=== PATIENT | male | born 1995 | race American Indian/Alaskan Native ===

== ENCOUNTER 2019-06-23 10:43 | Emergency (ER) | payer SELFPAY ==
--- NOTE | 2019-06-23 11:57 | Emergency Department Report ---
Chief Complaint: Neck Pain/Injury Stated Complaint: MAJOR NECK PAIN/DIFF AREAS PAIN Time Seen by Provider: 06/23/19 11:15 - HPI History of Present Illness: 23-year-old -[place] male patient presents with complaints of intermittent right-sided neck pain x5 months. He denies any injuries, numbness/tingling/weakness in his limbs, fever/chills/sweats, abnormal weight loss, weakness, or stiffness. He rates his current pain as a 5/10 in severity and states it worsens with movement of the neck. 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 He states ibuprofen does not help with his pain. Patient states he is concerned for his thyroid due to his mother having thyroid disease. He also states that his neck has been swollen a few months ago, but he has not had any swelling since. - ROS Review of Systems: Constitutional: denies: chills, fever, dizziness Eyes: denies: vision change HENT: denies: difficulty swallowing, throat pain Respiratory: denies: cough, SOB Cardiovascular: denies: palpitations, edema, syncope, chest pain Endocrine: denies: excessive sweating, flushing Gastrointestinal: denies: abdominal pain, nausea, vomiting Genitourinary: denies: frequency, hematuria Musculoskeletal: denies: back pain Skin: denies: rash, lesions Neurological: denies: headache, weakness, numbness, paresthesias, confusion, abnormal gait, vertigo Hematological/Lymphatic: denies: easy bleeding, easy bruising - Exam Physical Exam: - General Limitations: No Limitations General appearance: alert, in no apparent distress - Head Head exam: Present: atraumatic, normocephalic - Eye Eye exam: Present: normal appearance, PERRL. Absent: scleral icterus - ENT ENT exam: Present: normal exam, normal orophraynx - Neck Neck exam: Present: normal inspection, full ROM. Absent: tenderness, lymphadenopathy, thyromegaly, vertebral tenderness, paravertebral tenderness - Respiratory Respiratory exam: Present: normal lung sounds bilaterally, Absent: respiratory distress - Cardiovascular Cardiovascular Exam: Present: regular rate, normal rhythm. Absent: systolic murmur, diastolic murmur, rubs, gallop - GI/Abdominal GI/Abdominal exam: Present: soft, normal bowel sounds. Absent: distended, tenderness, guarding, rebound, rigid - Extremities Exam Extremities exam: Present: normal inspection, full ROM - Back Exam Back exam: Present: normal inspection - Neurological Exam Neurological exam: Present: alert, oriented X3, CN II-XII intact, normal gait. Absent: motor sensory deficit - Expanded Neurological Exam Expanded Motor strength exam: RUE: 5, LUE: 5, RLE: 5, LLE: 5 - Psychiatric Psychiatric exam: Present: normal affect, normal mood - Skin Skin exam: Present: warm, dry, intact, normal color. Absent: rash MSE screening note: Focused history and physical exam performed. Due to findings the following was ordered: ED Medical Decision Making - Medical Decision Making 23-year-old -[place] male patient presents with complaints of intermittent right-sided neck pain x5 months. He denies any red flag symptoms. His neuro exam is normal. No tenderness to palpation of the neck noted on exam. Patient has full range of motion of his neck on exam. Patient's vitals are normal and he is nontoxic-appearing. Patient is stable for discharge home and outpatient evaluation of his neck pain. Patient provided with information for Dr. Watson. Discussed very strict return precautions in great detail with patient who verbalizes understanding. ED Disposition for MSE Clinical Impression: Neck pain, chronic Disposition: Z-07 MED SCREENING EXAM-LEFT Is pt being admited?: No Condition: Stable Instructions: Cervical Radiculopathy (ED) Referrals: URIEL WATSON MD [Staff Physician] - 2-3 Days
[2019-06-23 14:54] VITALS: BP 115/74
== END 2019-06-23 12:07 | disposition left against medical advice (07) ==
LOC: ED 10:43
DX: G89.29 Other chronic pain (principal); M54.2 Cervicalgia
CPT/HCPCS: 99281

== ENCOUNTER 2020-06-19 18:40 | Emergency (ER) | payer SELFPAY ==
--- NOTE | 2020-06-19 19:07 | Event Note ---
ED Screening Note Date of service: 06/19/20 Time: 19:05 ED Screening Note: 24 yo male who presents to the ED with a chief complaint of mid and low back pain with any movement. 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 No specific injuries. no saddle anaesthesias, no bowel or bladder incontinence. This initial assessment/diagnostic orders/clinical plan/treatment(s) is/are subject to change based on patients health status, clinical progression and re- assessment by fellow clinical providers in the ED. Further treatment and workup at subsequent clinical providers discretion. Patient/guardian urged not to elope from the ED as their condition may be serious if not clinically assessed and managed. Initial orders include: xr chest, xr thoracic spine, xr lumbar spine
--- NOTE | 2020-06-19 19:47 | XRay Report ---
CHEST 2 VIEWS INDICATION / CLINICAL INFORMATION: MAIN. FINDINGS: COMPARISON: None available. FINDINGS: SUPPORT DEVICES: None. HEART / MEDIASTINUM: No significant abnormality. LUNGS / PLEURA: No significant pulmonary or pleural abnormality. No pneumothorax. ADDITIONAL FINDINGS: No significant additional findings. IMPRESSION: 1. No acute findings. Lumbar spine 3 views INDICATION: Back pain FINDINGS: Alignment appears normal. No acute fracture or dislocation is seen. Facets appear well alig miryam throughout. IMPRESSION: No acute findings. Signer Name: Diogo Trent MD Signed: 06/19/2020 7:43 PM Workstation Name: [id number]
--- NOTE | 2020-06-19 19:48 | XRay Report ---
Thoracic spine 2 views INDICATION: Lifting injury FINDINGS: Mild curvature the spine. Pedicles appear normal throughout. No loss of vertebral body heig ht. No compression fracture. Signer Name: Diogo Trent MD Signed: 06/19/2020 7:44 PM Workstation Name: [id number]
[2020-06-19 20:18] VITALS: BP 116/77
[2020-06-19] MEDS ORDERED: CYCLOBENZAPRINE 10 MG TAB PO ONE ×2 (20:25→21:34)
[2020-06-19] MEDS ORDERED: KETOROLAC 60 MG/2 ML INJ IM ONE (20:25)
[2020-06-19] MEDS ORDERED: ONDANSETRON 4 MG/2 ML INJ IV ONE (20:41)
[2020-06-19] MEDS ORDERED: MORPHINE 4 MG/1 ML INJ IV ONE (20:41)
[2020-06-19] MEDS ORDERED: SODIUM CHLORIDE 0.9% 1000 ML 1,000 ML IV ONE (20:41)
--- NOTE | 2020-06-19 20:42 | Emergency Department Report ---
ED Back Pain/Injury HPI - General Chief Complaint: Back Pain/Injury Stated Complaint: BACK PAIN INJURY/PAIN Time Seen by Provider: 06/19/20 20:25 Source: patient Limitations: No Limitations - History of Present Illness Initial Comments: 24 yr old male with no sig pmhx presents to ED c/o thoracic back pain. Onset 3 days ago. 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 He states pain has been constant and worse with deep breathes, certain positions and movement. He describes it as sharp pain and he states pain radiates into central chest. He denies any cough, fever or chills. He denies any nausea, Vomiting or any bowel changes. He denies any bowel or bladder incontinence. He denies Saddle anesthesia. He denies any Lower extremity weakness, numbness or tingling. He denies any calf pain or lower extremity swelling. He denies similar symptoms in the past. He states that he does drink occasionally and smokes marijuana. He denies any other illicit drug use. MD Complaint: back pain -: Gradual, days(s) (3) Similar Symptoms Previously: No - Related Data Previous Rx's Medication Instructions Recorded Last Taken Type Oxycodone HCl/Acetaminophen 1 each PO Q6HR PRN #12 tablet 06/19/20 Unknown Rx [Percocet 7.5/325 mg] Allergies Allergy/AdvReac Type Severity Reaction Status Date / Time No Known Allergies Allergy Unverified 06/23/19 10:46 ED Review of Systems ROS: Stated complaint: BACK PAIN INJURY/PAIN Other details as noted in HPI Comment: All other systems reviewed and negative Constitutional: denies: chills, fever Eyes: denies: eye pain, eye discharge, vision change ENT: denies: ear pain, throat pain Respiratory: other (Pleuritic chest pain). denies: cough, shortness of breath, SOB with exertion, SOB at rest, stridor, wheezing Cardiovascular: chest pain. denies: palpitations, dyspnea on exertion, orthopnea, edema, syncope, paroxysmal nocturnal dyspnea Gastrointestinal: denies: abdominal pain, nausea, vomiting, diarrhea, constipation, hematemesis, melena, hematochezia Musculoskeletal: back pain Neurological: denies: headache, weakness, paresthesias Psychiatric: denies: anxiety, depression ED Past Medical Hx - Past Medical History Previous Medical History?: No - Surgical History Past Surgical History?: No - Social History Smoking Status: Never Smoker Substance Use Type: None, Marijuana - Medications Home Medications: Home Medications Medication Instructions Recorded Confirmed Last Taken Type Oxycodone HCl/Acetaminophen 1 each PO Q6HR PRN #12 tablet 06/19/20 Unknown Rx [Percocet 7.5/325 mg] ED Physical Exam - General Limitations: No Limitations General appearance: alert, anxious, in distress (sec to pain), other (Patient appears uncomfortable, writhing in pain and keeps c/o of pain in his back and in his chest) - Head Head exam: Present: atraumatic, normocephalic, normal inspection - Eye Eye exam: Present: normal appearance, PERRL, EOMI Pupils: Present: normal accommodation - ENT ENT exam: Present: normal exam, mucous membranes moist - Neck Neck exam: Present: normal inspection, full ROM - Respiratory Respiratory exam: Present: normal lung sounds bilaterally. Absent: respiratory distress, wheezes, rales, rhonchi, accessory muscle use, decreased breath sounds, prolonged expiratory - Cardiovascular Cardiovascular Exam: Present: regular rate, normal rhythm, normal heart sounds - GI/Abdominal GI/Abdominal exam: Present: soft, tenderness (Epigastric). Absent: distended, guarding, rebound - Extremities Exam Extremities exam: Present: normal inspection, full ROM, pedal edema, calf tenderness - Back Exam Back exam: Present: normal inspection, full ROM, other (pt does not appear to have ttp to paraspinal muscles nor the spine in the thoracic region.) - Neurological Exam Neurological exam: Present: alert, oriented X3, CN II-XII intact, normal gait - Psychiatric Psychiatric exam: Present: normal affect, normal mood - Skin Skin exam: Present: intact ED Course Vital Signs 06/19/20 06/19/20 19:24 20:15 Temperature 97.9 F 99.4 F Pulse Rate 78 81 Respiratory 16 18 Rate Blood Pressure 133/74 116/77 O2 Sat by Pulse 100 100 Oximetry ED Medical Decision Making - Lab Data Result diagrams: 06/19/20 20:45 06/19/20 20:45 - EKG Data EKG shows normal: sinus rhythm Rate: normal - EKG Data Interpretation: nonspecific ST-T wave kyle - Radiology Data Radiology results: report reviewed Patient: PRASANNA GIVENS#: [id number] : 1995 Acct:[id number] Age/Sex: 24 / M ADM Date: 06/19/20 Loc: ED Attending Dr: Ordering Physician: OMAYRA DORAN Date of Service: 06/19/20 Procedure(s): CT angio chest Accession Number(s): [id number] cc: OMAYRA DORAN CTA CHEST WITH CONTRAST INDICATION / CLINICAL INFORMATION: chest/back pain. TECHNIQUE: Axial CT images were obtained through the chest after injection of IV contrast. 3 plane MIP and/or 3D reconstructions were produced. All CT scans at this location are performed using CT dose reduction for ALARA by means of automated exposure control. COMPARISON: Chest radiograph from the same date. FINDINGS: PULMONARY ARTERIES: No pulmonary emboli. THORACIC AORTA: No significant abnormality. HEART: No significant abnormality. CORONARY ARTERIES: No significant calcification. MEDIASTINUM / KELVIN: No significant abnormality. PLEURA: No pleural effusion. No pneumothorax. LUNGS: No acute air space or interstitial disease. ADDITIONAL FINDINGS: None. UPPER ABDOMEN: No acute findings. SKELETAL STRUCTURES: No significant osseous abnormality. IMPRESSION: 1. No CT evidence for pulmonary embolism. 2. No acute findings. Signer Name: Lissett Mccray MD Signed: 06/19/2020 9:52 PM Workstation Name: [id number] Transcribed By: SS Dictated By: LISSETT MCCRAY Electronically Authenticated By: LISSETT MCCRAY Signed Date/Time: 06/19/202151 DD/ 50 TD/TT: - Medical Decision Making 12:03 patient currently resting comfortably sleeping. He is easily arousable. He reports some improvement of his pain after meds he is not toxic appearing. He is not ill-appearing. He is not in any respiratory distress. He is neurologically intact. His vital signs have remained stable throughout stay. Repeat abdominal exam showed nonsurgical abdomen. X-rays, CTA chest, and labs reviewed. Lipase is elevated at 407, no mention of apparent pancreatitis on the CTA; the images were reviewed by myself and Dr. Meraz and imaging did include down to kidneys, No obvious acute abnormality noted to pancreas. His white count is normal, his liver functions are normal, renal functions are normal, electrolytes are normal, his troponin is negative, EKG shows no STEMI, no acute ischemic changes or significant dysrhythmias, CTA shows no evidence of PE or dissection or any other acute abnormality., chest x-ray normal, and his x-rays of his lumbar and thoracic spine also normal. Patient is young and otherwise healthy. No indication for admission at this time. Patient will be discharged home with recommendation to do clear liquid diet for the next 1 to 2 days and he will be given medication for pain. Discussed imaging results and lab results with patient. Questions again about alcohol use, he states he only drinks occasionally. He denies history of pancreatitis in the past. Discussed pancreatitis with patient, and informed him that we recommend that he does a clear liquid diet for the next 1 to 2 days and he will be prescribed medication for pain. Patient also understands that if his pain worsens or changes in any way he needs to return to the ER. Patient expressed understanding of instructions and agree with plan. Patient was stable at time of discharge. Critical care attestation.: If time is entered above; I have spent that time in minutes in the direct care of this critically ill patient, excluding procedure time. ED Disposition Clinical Impression: Pancreatitis, Atypical chest pain, Back pain Disposition: DC-01 TO HOME OR SELFCARE Is pt being admited?: No Does the pt Need Aspirin: No Condition: Stable Instructions: Acute Pancreatitis, [id number], Nonspecific Chest Pain, Adult, [id number], Chest Pain (ED) Additional Instructions: I recommend I take the pain medication as prescribed. I recommend that you do a clear liquid diet for the next 24 to 48 hours as discussed. Gradually increase to solid foods. Follow-up closely with the primary care doctor listed on your discharge instructions but return to the ER immediately if your pain worsens or changes in any way. Prescriptions: Oxycodone HCl/Acetaminophen [Percocet 7.5/325 mg] 1 each PO Q6HR PRN #12 tablet PRN Reason: Pain Referrals: URIEL LASSITER MD [Staff Physician] - 3-5 Days Forms: Work/School Release Form(ED) Time of Disposition: 23:58
[2020-06-19 20:57] LABS: Hemoglobin 14.4 gm/dl (11.8-15.2); Red Blood Count 6.02 M/mm3 (3.65-5.03)
[2020-06-19 20:58] LABS: Basophils % (Auto) 0.3 % (0.0-1.8); Eosinophils # (Auto) 0.1 K/mm3 (0.0-0.4); Eosinophils % (Auto) 0.8 % (0.0-4.3); Hematocrit 44.3 % (35.5-45.6); Lymphocytes # (Auto) 1.3 K/mm3 (1.2-5.4); Lymphocytes % (Auto) 11.3 % (13.4-35.0); Mean Corpuscular HGB Conc 33 % (32-34); Mean Corpuscular Volume 74 fl (84-94); Monocytes % (Auto) 8.3 % (0.0-7.3); Platelet Count 239 K/mm3 (140-440); Red Cell Distribution Width 13.4 % (13.2-15.2)
[2020-06-19] MEDS ORDERED: HYDROmorphone 1 MG/1 ML INJ IV ONE (21:17)
[2020-06-19 21:22] LABS: Alanine Aminotransferase 18 units/L (7-56); Albumin 5.1 g/dL (3.9-5); BUN/Creatinine Ratio 20; Blood Urea Nitrogen 14 mg/dL (9-20); Calcium 9.9 mg/dL (8.4-10.2); Hemolysis Index 5
--- NOTE | 2020-06-19 21:56 | Cat Scan Report ---
CTA CHEST WITH CONTRAST INDICATION / CLINICAL INFORMATION: chest/back pain. TECHNIQUE: Axial CT images were obtained through the chest after injection of IV contrast. 3 plane MIP and/or 3D reconstructions were produced. All CT scans at this location are performed using CT dose reduction f or ALARA by means of automated exposure control. COMPARISON: Chest radiograph from the same date. FINDINGS: PULMONARY ARTERIES: No pulmonary emboli. THORACIC AORTA: No significant abnormality. HEART: No significant abnormality. CORONARY ARTERIES: No significant calcification. MEDIASTINUM / KELVIN: No significant abnormality. PLEURA: No pleural effusion. No pneumothorax. LUNGS: No acute air space or interstitial disease. ADDITIONAL FINDINGS: None. UPPER ABDOMEN: No acute findings. SKELETAL STRUCTURES: No significant osseous abnormality. IMPRESSION: 1. No CT evidence for pulmonary embolism. 2. No acute findings. Signer Name: Wilmer Mccray MD Signed: 06/19/2020 9:52 PM Workstation Name: [id number]
[2020-06-20] MEDS ORDERED: KETOROLAC 30 MG/1 ML INJ IV ONE (00:03)
== END 2020-06-20 00:20 | disposition home or self-care (01) ==
LOC: ED 18:40
DX: K85.90 Acute pancreatitis without necrosis or infection, unspecified (principal); R07.89 Other chest pain; M54.9 Dorsalgia, unspecified; F12.10 Cannabis abuse, uncomplicated; Z79.899 Other long term (current) drug therapy
CPT/HCPCS: 36415; 71046; 71275; 72070; 72100; 80053; 83690; 84484; 85025; 85379; 93005; 96361; 96374; 96375; 99284; J1170; J1885; J2270; J2405; J7030; Q9967